=== PATIENT | female | born 1960 | race Asian ===

== ENCOUNTER 2017-02-11 00:11 | Emergency (ER) | payer MEDICAID ==
[~2017-02-11] VITALS: Ht 157.5 cm; Wt 55.1 kg
[~2017-02-11 00:11] MED LIST: vitamin b-12 PO; vitamin d PO
[2017-02-11 00:46] LABS: PATH.CAST-FLAG NOT PRESENT; SPERM-FLAG NOT PRESENT; SRC-FLAG NOT PRESENT; XTAL-FLAG NOT PRESENT; YLC-FLAG NOT PRESENT
[2017-02-11] MEDS ORDERED: PHENAZOPYRIDINE 200 MG TABLET PO ONE (01:30)
[2017-02-11] MEDS ORDERED: CIPROFLOXACIN 500 MG TABLET PO ONE (01:30)
[2017-02-11] MEDS ORDERED: CIPROFLOXACIN 500 MG TABLET ONE (01:44)
[2017-02-11] MEDS ORDERED: PHENAZOPYRIDINE 200 MG TABLET ONE (01:45)
[2017-02-11 01:50] VITALS: BP 127/77
== END 2017-02-11 01:52 | disposition home or self-care (01) ==
LOC: ED 01:46
DX: N39.0 Urinary tract infection, site not specified (principal)
CPT/HCPCS: 81001; 87086; 87147; 99284

== ENCOUNTER 2020-07-08 17:12 | Emergency (ER) | payer MEDICAID ==
[~2020-07-08] VITALS: Ht 157.5 cm; Wt 49.5 kg
[2020-07-08 17:14] VITALS: BP 120/82
--- NOTE | 2020-07-08 17:48 | NUR ---
Pt has rash with postules on arms, and legs starting from hands into the torso. Pt also has rash in her mouth. pt has been on antivirals but no relief. pt also reports very itchy and has been using very hot water to help the pain and discomfort. Pt resting in bed. Awaiting further orders. Pt denies new medications or allergies.
--- NOTE | 2020-07-08 18:48 | NUR ---
Patient/Caregiver given discharge instructions and they have confirmed that they understand the instructions. Patient ambulatory with steady gait.
== END 2020-07-08 18:49 | disposition home or self-care (01) ==
LOC: ED 17:36
DX: R21 Rash and other nonspecific skin eruption (principal)
CPT/HCPCS: 99283; J7512

== ENCOUNTER 2021-02-24 11:54 | Emergency (ER) | payer MEDICAID ==
[~2021-02-24] VITALS: Ht 157.5 cm; Wt 47.7 kg
[2021-02-24 12:22] VITALS: BP 118/88
--- NOTE | 2021-02-24 12:41 | NUR ---
PT C/O RIGHT SIDE FACE SWELLING THAT STARTED YESTERDAY. PT STATES SHE HAS HAD AN ISSUE LIKE THIS BEFORE ON HER LEFT ARM AND WAS GIVEN MEDICATION AND THE SITUATION RESOLVED. PT NOT SURE WHAT WAS HER DX OR WHAT MEDICATION WAS USED LAST TIME. PT HAS ERYTHEMA AND BLISTERS TO RIGHT SIDE OF UPPER FACE.
[2021-02-24] MEDS ORDERED: FLUORESCEIN OPHTHALMIC 1 MG STRIP ONE (12:59)
[2021-02-24] MEDS ORDERED: PROPARACAINE OPHTH 0.5%, 15ML EACHEYE ONE (13:00)
[2021-02-24] MEDS ORDERED: FLUORESCEIN OPHTHALMIC 1 MG STRIP EACHEYE ONE (13:00)
[2021-02-24] MEDS ORDERED: PROPARACAINE OPHTH 0.5%, 15ML ONE (13:00)
--- NOTE | 2021-02-24 13:14 | NUR ---
Patient given discharge instructions and they have confirmed that they understand the instructions. Patient ambulatory with steady gait.
== END 2021-02-24 13:35 | disposition home or self-care (01) ==
LOC: ED 13:05
DX: B02.9 Zoster without complications (principal)
CPT/HCPCS: 99283